=== PATIENT | male | born 1940 | race Caucasian/White ===

== ENCOUNTER 2017-01-06 11:17 | Emergency (ER) | payer MEDICARE, BC ==
[2017-01-06 11:33] VITALS: BP 127/89
--- NOTE | 2017-01-06 11:38 | UC ---
Elbow Pain - HPI Summary HPI Summary: 76 yo male hit his "funny bone" 5 weeks ago Since then his elbow has been markedly tender if he leans on it Today he developed swelling over his olecranon He is right handed - History of Current Complaint Stated Complaint: SWOLLEN ELBOW Time Seen by Provider: 01/06/17 11:24 Hx Obtained From: Patient Onset/Duration: Weeks - 5 Severity Initially: Moderate Severity Currently: Mild Pain Intensity: 1 Pain Scale Used: 0-10 Numeric Location Of Pain: Is Discrete @ - olecranon Character: Aching Aggravating Factor(s): Other - leaning on it Alleviating Factor(s): Rest Associated Signs And Symptoms: Positive: Swelling - today only - Allergies/Home Medications Allergies/Adverse Reactions: Allergies Allergy/AdvReac Type Severity Reaction Status Date / Time No Known Allergies Allergy Verified 01/06/17 11:29 PMH/Surg Hx/FS Hx/Imm Hx Previously Healthy: Yes Cardiovascular History: Hypertension - Family History Known Family History: Positive: Hypertension Review of Systems Constitutional: Negative Skin: Negative Eyes: Negative ENT: Negative Respiratory: Negative Cardiovascular: Negative Gastrointestinal: Negative Genitourinary: Negative Motor: Negative Neurovascular: Negative Musculoskeletal: Arthralgia Neurological: Negative Psychological: Negative Is Patient Immunocompromised?: No All Other Systems Reviewed And Are Negative: Yes Physical Exam Triage Information Reviewed: Yes Appearance: Well-Appearing, No Pain Distress, Well-Nourished Vital Signs Reviewed: Yes Eyes: Positive: Conjunctiva Clear ENT: Positive: Hearing grossly normal. Negative: Nasal congestion, Nasal drainage, Trismus, Muffled/hoarse voice Neck: Positive: Supple, Nontender Respiratory: Positive: Lungs clear, Normal breath sounds, No respiratory distress, No accessory muscle use Cardiovascular: Positive: RRR, No Murmur Musculoskeletal: Positive: Strength Intact, ROM Intact, Other: - swollen over olecranon/skin intact/no redness/sl warmth Diagnostics - Radiology No standard instances Xray Interpretation: Positive (See Comments) - chip fx olecranon Radiology Interpretation Completed By: ED Physician Elbow Pain Course/Dx - Differential Dx/Diagnosis Provider Diagnoses: subacute chip fracture of right olecranon. olecraon bursitis (right) Discharge - Discharge Plan Condition: Stable Disposition: HOME Prescriptions: Naproxen Sodium [Naproxen Sodium 500 MG TAB] 500 mg PO BID PRN #30 tab PRN Reason: Pain Patient Education Materials: Elbow Bursitis (ED), Avulsion Fracture (ED) Referrals: Scott Melendez MD [Medical Doctor] - As Soon As Possible Additional Instructions: avoid pressure on right elbow
--- NOTE | 2017-01-06 12:00 | RAD ---
INDICATION: Injury 5 weeks ago. Right elbow pain COMPARISON: None TECHNIQUE: AP, lateral, and oblique views were obtained. FINDINGS: There is a tiny linear ossific density adjacent to the olecranon which could represent a subacute avulsion injury. There is prominent soft tissue swelling about the right which is likely related to bursitis. The elbow articulates normally. IMPRESSION: SUSPECT REMOTE PROXIMAL ULNAR AVULSION INJURY. OLECRANON BURSITIS.
== END 2017-01-06 12:15 | disposition home or self-care (01) ==
LOC: UCEAST 11:17
DX: S52.021A Displaced fracture of olecranon process without intraarticular extension of right ulna, initial encounter for closed fracture (principal); M70.31 Other bursitis of elbow, right elbow; X58.XXXA Exposure to other specified factors, initial encounter; Y92.9 Unspecified place or not applicable; I10 Essential (primary) hypertension
CPT/HCPCS: 99212; G0463